=== PATIENT | male | born 1965 | race Caucasian/White ===

== ENCOUNTER 2020-01-06 21:49 | Emergency (ER) | payer OTHER, SELFPAY ==
--- NOTE | 2020-01-06 21:59 | DI.RAD.S_ITS ---
PROCEDURE: XR CHEST 1V INDICATIONS: fever, cough, sepsis TECHNIQUE: One view of the chest was acquired. COMPARISON: None. FINDINGS: Surgical changes and devices: None. Lungs and pleura: Lungs are clear. No pleural effusions or pneumothorax. Mediastinum: Mediastinal contours appear normal. Heart size is normal. Bones and chest wall: No suspicious bony lesions. Overlying soft tissues appear unremarkable. IMPRESSION: No acute cardiopulmonary disease process. Dictated by: Marifer Rome MD, PhD on 01/07/2020 at 8:20 Approved by: Marifer Rome MD, PhD on 01/07/2020 at 8:22
[2020-01-06 22:05] VITALS: BP 156/72; PULSE 106; RESP 21; TEMP 38.8; O2SAT 95; BMI 38.9
[2020-01-06] MEDS: ACETAMINOPHEN 325 MG TABLET 975 MG PO (22:05)
[2020-01-06] MEDS: LACTATED RINGERS 1,000 ML 1000 ML IV (22:05)
--- NOTE | 2020-01-06 22:22 | ED_ITS ---
HPI - Fever General Chief Complaint: Fever Stated Complaint: fever, back pain Time Seen by Provider: 01/06/20 21:52 Source: patient Mode of arrival: Family Vehicle Limitations: no limitations History of Present Illness HPI Narrative: 54-year-old male nonsmoker with noncontributory medical history presents with a chief complaint of runny nose, headache, sore throat, cough and bilateral low back pain for the past few days. He states that he generally feels unwell. He denies any dysuria, frequency or urgency. He denies any change in bowel habits. He states he has felt fatigued and under the weather. He denies that his pain is midline, the use of IV drugs or history of the same. MD complaint: fever and malaise Onset (ago): day(s) Maximum Temperature: 102 F Temperature Source: oral Associated symptoms: myalgias, headache, rhinorrhea, nasal congestion, sore throat, cough and nausea Relieving factors: nothing Exacerbating factors: nothing Treatments prior to arrival fever: ibuprofen Related Data Previous Rx's Medication Instructions Recorded doxycycline monohydrate 100 mg PO BID 10 Days #20 cap 01/07/20 Allergies Allergy/AdvReac Type Severity Reaction Status Date / Time No Known Drug Allergies Allergy Verified 01/06/20 22:08 Review of Systems Constitutional Constitutional: Reports body ache(s), Reports chills, Reports fatigue, Reports fever(s), Denies frequent falls, Reports headache(s), Denies lethargy and Denies weakness Eyes Eyes: Denies change in vision, Denies eye discharge, Denies irritation and Denies loss of vision ENT Ears, Nose, Mouth, and Throat: Denies change in voice, Denies dizziness, Reports headache(s), Denies neck pain, Reports sore throat and Denies throat swelling Cardiovascular Cardiovascular: Denies chest pain, Denies irregular heart rhythm, Denies lightheadedness, Denies palpitations, Denies dyspnea, Denies dyspnea on exertion and Denies orthopnea Respiratory Respiratory: Reports cough, Denies dyspnea, Denies dyspnea on exertion and Denies wheezing Gastrointestinal Gastrointestinal: Denies abdominal pain, Denies change in bowel habits, Denies diarrhea, Denies nausea and Denies vomiting Genitourinary Genitourinary: Denies hematuria, Denies flank pain, Denies urinary incontinence and Denies urinary urgency Musculoskeletal Musculoskeletal: Reports back pain, Denies muscle weakness, Denies neck pain, Denies numbness and Denies tingling Integumentary/Breasts Skin/Breast: Denies pruritus, Denies erythema, Denies rash and Denies wounds Neurologic Neurologic: Denies behavioral changes, Denies confusion, Denies dizziness, Denies frequent falls, Reports headache(s), Denies loss of vision, Denies numbness, Denies tingling and Denies weakness Psychiatric Psychiatric: Denies anxiety, Denies behavioral changes, Denies confusion, Denies depression, Denies homicidal ideation and Denies suicidal ideation Endocrine Endocrine: Reports fatigue, Denies flushing and Denies palpitations Hematologic/Lymphatic Hematologic/Lymphatic: Denies easy bruising Allergic/Immunologic Allergic/Immunologic: Denies urticaria, Denies throat swelling and Denies wheezing Patient History Social History Smoking Status: Never smoker Smoking Status: Never smoker alcohol intake frequency: a few times a week Substance Use Type: does not use Exam Narrative Exam Narrative: GENERAL: [54] year old patient appears stated age. Well- nourished, well-developed patient, in mild distress. HEAD: Atraumatic. Normocephalic. EYES: Pupils equal round and reactive. Extraocular motions intact. No scleral icterus. No injection or drainage. ENT: Nose without bleeding, purulent drainage. Throat without erythema, tons illar hypertrophy or exudate. Airway patent. NECK: Trachea midline. Non tender CARDIOVASCULAR: Regular rate and rhythm without murmurs, gallops, or rubs. RESPIRATORY: Clear to auscultation. Breath sounds equal bilaterally. No wheezes, rales, or rhonchi. GASTROINTESTINAL: Abdomen soft, non-tender, nondistended. EXTREMITIES: No edema or joint tenderness. BACK: Without deformity or crepitance. Bilateral lower lumbar discomfort. No midline tenderness. No saddle anesthesia, lower extremity weakness. Bilateral patellar reflexes 2+ NEURO: AOx3. SKIN: No rash or erythema of visible areas Initial Vital Signs Initial Vital Signs: Vital Signs Temperature 101.8 F H 01/06/20 22:05 Pulse Rate 106 H 01/06/20 22:05 Respiratory Rate 21 01/06/20 22:05 Blood Pressure 156/72 H 01/06/20 22:05 Pulse Oximetry 95 01/06/20 22:05 Course Orders Ordered: ED Orders 01/06/20 21:59 XR chest 1V Stat 01/06/20 22:00 Influenza A & B (PCR) Stat 01/06/20 22:05 Complete Blood Count AUTO DIFF Stat Comprehensive Metabolic Panel Stat Lactate (Lactic Acid) Stat Procalcitonin Stat 01/06/20 22:29 Blood Culture Stat 01/06/20 23:00 Respiratory Panel (Film Array) Stat Lactated Ringer's (Lactated Ringers) 1,000 mls @ 1,000 mls/hr IV BOLUS ONE Stop: 01/07/20 01:19 Last Admin: 01/07/20 00:27 Dose: 1,000 mls/hr Documented by: JANIE Discontinued Medications Acetaminophen (Tylenol) 975 mg PO NOW ONE Stop: 01/06/20 22:00 Last Admin: 01/06/20 22:05 Dose: 975 mg Documented by: KADY Doxycycline Hyclate (Vibramycin) 100 mg PO NOW ONE Stop: 01/07/20 00:49 Lactated Ringer's (Lactated Ringers) 1,000 mls @ 1,000 mls/hr IV CONT ONE Stop: 01/06/20 22:58 Last Infusion: 01/06/20 23:20 Dose: 1,000 mls/hr Documented by: Admin: 01/06/20 22:05 Dose: 1,000 mls/hr Documented by: KADY Ketorolac Tromethamine (Toradol) 15 mg IV NOW ONE Stop: 01/07/20 00:22 Last Admin: 01/07/20 00:28 Dose: 15 mg Documented by: JANIE Vital Signs Vital signs: Vital Signs - 8 hr 01/06/20 22:05 01/06/20 23:10 Temperature 101.8 F H 101 F H Pulse Rate 106 H Respiratory Rate 21 Blood Pressure 156/72 H Pulse Oximetry 95 MDM - Fever Lab Data Result diagrams: 01/06/20 22:05 01/06/20 22:05 Labs: Lab Results 01/06/20 01/06/20 01/06/20 Range/Units 22:00 22:05 22:05 WBC 10.8 (4.5-11.0) X10^3/uL RBC 4.45 L (4.5-5.9) X10^6/uL Hgb 14.2 (13.5-17.5) g/dL Hct 40.4 L (41-53) % MCV 90.9 (80-100) fL MCH 31.8 (26-34) PG MCHC 35.0 (30-36) % RDW 12.7 (11.6-14.8) % Plt Count 227 (150-400) X10^3/uL Neut % (Auto) 70.5 (50-75) % Lymph % (Auto) 17.1 L (25-40) % [place] % (Auto) 10.5 (3-14) % Eos % (Auto) 1.4 L (2-4) % Baso % (Auto) 0.5 (0-2) % Neut # (Auto) 7600 H (9042-6142) /uL Lymph # (Auto) 1900 (6691-8329) /uL [place] # (Auto) 1100 H (0-900) /uL Eos # (Auto) 100 (0-450) /uL Baso # (Auto) 100 (0-100) /uL Sodium (137-145) mmol/L Potassium (3.4-5.1) mmol/L Chloride (98-107) mmol/L Carbon Dioxide (22-32) mmol/L BUN (9-20) mg/dL Creatinine (0.66-1.25) mg/dL Estimated GFR (>60) mL/min BUN/Creatinine Ratio (6-22) Glucose (70-100) mg/dL Lactate (0.7-2.1) mmol/L Calcium (8.4-10.2) mg/dL Total Bilirubin (0.2-1.3) mg/dL AST (17-59) IU/L ALT (<50) IU/L Alkaline Phosphatase (38-126) U/L Total Protein (6.3-8.2) g/dL Albumin (3.5-5.0) g/dL Globulin (1.7-4.1) g/dL Albumin/Globulin Ratio (1.0-2.8) Procalcitonin 0.05 (<0.5) ng/mL Chlamy pneumoniae PCR (Not Detect) Adenovirus (PCR) (Not Detect) B.parapertussis DNA PCR (Not Detect) Coronavirus OC43 (PCR) (Not Detect) Coronavirus HKU1 (PCR) (Not Detect) Coronavirus 229E (PCR) (Not Detect) Coronavirus NL63 (PCR) (Not Detect) Human Metapneumovir PCR (Not Detect) Influenza A (RT-PCR) Flu a negative (NEGATIVE) Influenza Type A (PCR) (Not Detect) Influenza B (RT-PCR) Flu b negative (NEGATIVE) Influenza Type B (PCR) (Not Detect) M. pneumoniae (PCR) (Not Detect) Parainfluenza 1 (PCR) (Not Detect) Parainfluenza 2 (PCR) (Not Detect) Parainfluenza 3 (PCR) (Not Detect) Parainfluenza 4 (PCR) (Not Detect) RSV (PCR) (Not Detect) Entero/Rhino (PCR) (Not Detect) 01/06/20 01/06/20 01/06/20 Range/Units 22:05 22:05 23:00 WBC (4.5-11.0) X10^3/uL RBC (4.5-5.9) X10^6/uL Hgb (13.5-17.5) g/dL Hct (41-53) % MCV (80-100) fL MCH (26-34) PG MCHC (30-36) % RDW (11.6-14.8) % Plt Count (150-400) X10^3/uL Neut % (Auto) (50-75) % Lymph % (Auto) (25-40) % [place] % (Auto) (3-14) % Eos % (Auto) (2-4) % Baso % (Auto) (0-2) % Neut # (Auto) (9591-2940) /uL Lymph # (Auto) (4405-2549) /uL [place] # (Auto) (0-900) /uL Eos # (Auto) (0-450) /uL Baso # (Auto) (0-100) /uL Sodium 139 (137-145) mmol/L Potassium 4.1 (3.4-5.1) mmol/L Chloride 100 (98-107) mmol/L Carbon Dioxide 29 (22-32) mmol/L BUN 21 H (9-20) mg/dL Creatinine 1.10 (0.66-1.25) mg/dL Estimated GFR > 60.0 (>60) mL/min BUN/Creatinine Ratio 19.1 (6-22) Glucose 125 H (70-100) mg/dL Lactate 1.5 (0.7-2.1) mmol/L Calcium 9.8 (8.4-10.2) mg/dL Total Bilirubin 0.6 (0.2-1.3) mg/dL AST 37 (17-59) IU/L ALT 28 (<50) IU/L Alkaline Phosphatase 66 (38-126) U/L Total Protein 7.9 (6.3-8.2) g/dL Albumin 4.7 (3.5-5.0) g/dL Globulin 3.2 (1.7-4.1) g/dL Albumin/Globulin Ratio 1.5 (1.0-2.8) Procalcitonin (<0.5) ng/mL Chlamy pneumoniae PCR Not detected (Not Detect) Adenovirus (PCR) Not detected (Not Detect) B.parapertussis DNA PCR Not detected (Not Detect) Coronavirus OC43 (PCR) Not detected (Not Detect) Coronavirus HKU1 (PCR) Not detected (Not Detect) Coronavirus 229E (PCR) Not detected (Not Detect) Coronavirus NL63 (PCR) Not detected (Not Detect) Human Metapneumovir PCR Not detected (Not Detect) Influenza A (RT-PCR) (NEGATIVE) Influenza Type A (PCR) Not detected (Not Detect) Influenza B (RT-PCR) (NEGATIVE) Influenza Type B (PCR) Not detected (Not Detect) M. pneumoniae (PCR) Not detected (Not Detect) Parainfluenza 1 (PCR) Not detected (Not Detect) Parainfluenza 2 (PCR) Not detected (Not Detect) Parainfluenza 3 (PCR) Not detected (Not Detect) Parainfluenza 4 (PCR) Not detected (Not Detect) RSV (PCR) Not detected (Not Detect) Entero/Rhino (PCR) Not detected (Not Detect) Urine Dip Bedside Urine Glucose Negative Bedside Urine Bilirubin - Negative Bedside Urine Ketone +/- 5 Urine Specific [place] 1.015 Bedside Urine Occult Blood - Negative Bedside Urine pH 6.0 Bedside Urine Protein - Negative Bedside Urine Urobilinogen - Negative Bedside Urine Nitrite - Negative Bedside Urine Leukocytes - Negative Esterase MDM Narrative Medical decision making narrative: Patient feeling much better after fluids and other treatments stated above. Multiple etiologies considered for his widespread symptoms including flu and strep, both thought less likely given negative testing. UTI and pyelonephritis considered less likely given lack of typical findings urine. Spinal osteomyelitis and abscess considered but thought less likely given lack of midline tenderness over the bone or typical risk factors. Meningitis considered but thought less likely given lack of any neck pain, confusion, vomiting and presence of widespread symptoms. Atypical pneumonia or community-acquired pneumonia considered most likely cause of these symptoms. Will treat with antibiotics and encourage close follow-up. Patient understands return precautions and has had his questions answered to his apparent satisf action. Discharge Plan Departure Patient Disposition: Home Clinical Impression: Atypical pneumonia Instructions: DI for Atypical Pneumonia Activity Restrictions/Additional Instructions: *You have been diagnosed with [ atypical pneumonia ] *What to do: *Take medications as directed *Follow up with your primary care provider in 2-3 days, call for an appointment. Let them know you were seen in the Emergency Department and that we ask that you be seen in follow up *Return to ER if you should have any new, worsening or concerning symptoms, such as [shaking chills, worsening trouble breathing, development of other concerning symptoms ] Prescriptions: New doxycycline monohydrate 100 mg capsule 100 mg PO BID 10 Days Qty: 20 RF: 0
[2020-01-06 22:26] LABS: Add Manual Diff / Slide Review NO; Basophils Absolute Auto 100 /uL (0-100); Basophils Percent Auto 0.5 % (0-2); Eosinophils Absolute Auto 100 /uL (0-450); Eosinophils Percent Auto 1.4 % (2-4); Hematocrit 40.4 % (41-53); Hemoglobin 14.2 g/dL (13.5-17.5); Lymphocytes Absolute Auto 1900 /uL (1100-4500); Lymphocytes Percent Auto 17.1 % (25-40); Mean Corpuscular Hemoglobin 31.8 PG (26-34); Mean Corpuscular Volume 90.9 fL (80-100); Monocytes Absolute Auto 1100 /uL (0-900); Monocytes Percent Auto 10.5 % (3-14); Neutrophils Absolute Auto 7600 /uL (1500-7000); Neutrophils Percent Auto 70.5 % (50-75); Platelet Count 227 X10^3/uL (150-400); Red Blood Cell Count 4.45 X10^6/uL (4.5-5.9); Red Cell Distribution Width 12.7 % (11.6-14.8); White Blood Cell Count 10.8 X10^3/uL (4.5-11.0)
[2020-01-06 22:35] LABS: Lactate (Lactic Acid) 1.5 mmol/L (0.7-2.1)
[2020-01-06 22:36] LABS: Influenza A - CEPHEID Flu A NEGATIVE (NEGATIVE); Influenza B - CEPHEID Flu B NEGATIVE (NEGATIVE)
[2020-01-06 22:40] LABS: Alanine Aminotransferase 28 IU/L (<50); Albumin 4.7 g/dL (3.5-5.0); Albumin Globulin Ratio 1.5 (1.0-2.8); Alkaline Phosphatase 66 U/L (38-126); Aspartate Aminotransferase 37 IU/L (17-59); BUN Creatinine Ratio 19.1 (6-22); Bilirubin Total 0.6 mg/dL (0.2-1.3); Blood Urea Nitrogen 21 mg/dL (9-20); Calcium 9.8 mg/dL (8.4-10.2); Carbon Dioxide 29 mmol/L (22-32); Chloride 100 mmol/L (98-107); Estimated Glomerular Filt Rate > 60.0 mL/min (>60); Globulin 3.2 g/dL (1.7-4.1); Glucose 125 mg/dL (70-100); HEMOLYSIS < 15 (0-50); Potassium 4.1 mmol/L (3.4-5.1); Sodium 139 mmol/L (137-145); Total Protein 7.9 g/dL (6.3-8.2)
[2020-01-06 22:55] LABS: Procalcitonin 0.05 ng/mL (<0.5)
[2020-01-06 23:10] VITALS: TEMP 38.3
[2020-01-07 00:23] LABS: Adenovirus Not Detected (Not Detect); Bordetella pertussis Not Detected (Not Detect); Chlamydophila pneumoniae Not Detected (Not Detect); Coronavirus 229E Not Detected (Not Detect); Coronavirus HKU1 Not Detected (Not Detect); Coronavirus NL 63 Not Detected (Not Detect); Coronavirus OC43 Not Detected (Not Detect); Human Metapneumovirus Not Detected (Not Detect); Human Rhinovirus/Enterovirus Not Detected (Not Detect); Influenza A Not Detected (Not Detect); Influenza B Not Detected (Not Detect); Mycoplasma pneumoniae Not Detected (Not Detect); Parainfluenza Virus 1 Not Detected (Not Detect); Parainfluenza Virus 2 Not Detected (Not Detect); Parainfluenza Virus 3 Not Detected (Not Detect); Parainfluenza Virus 4 Not Detected (Not Detect); Respiratory Syncytial Virus Not Detected (Not Detect)
[2020-01-07] MEDS: LACTATED RINGERS 1,000 ML 1000 ML IV (00:27)
[2020-01-07] MEDS: KETOROLAC 60 MG/2 ML VIAL 15 MG IV (00:28)
[2020-01-07] MEDS: DOXYCYCLINE HYCLATE 100 MG TABLET PO (00:56)
[2020-01-07 00:58] VITALS: BP 125/65; PULSE 73; RESP 18; O2SAT 97
[2020-01-07 01:30] VITALS: TEMP 37.1
[2020-01-07 01:36] VITALS: TEMP 37.1
== END 2020-01-07 01:36 | disposition home or self-care (01) ==
PROVIDERS: Emergency Provider Emergency Medicine
DX: J18.9 Pneumonia, unspecified organism (principal)
CPT/HCPCS: 36415; 71045; 80053; 81003; 83605; 84145; 85025; 87040; 87502; 87633; 87880; 96361; 96374; 99284; J1885

== ENCOUNTER 2020-06-04 21:29 | Emergency (ER) | payer OTHER, SELFPAY ==
[2020-06-04 21:38] VITALS: BP 151/95; PULSE 85; RESP 20; TEMP 36.9; O2SAT 97; BMI 37.5
--- NOTE | 2020-06-04 22:08 | ED_ITS ---
HPI - General Adult General Chief complaint: Upper Respiratory Symptoms Stated complaint: States Sinus infection Time Seen by Provider: 06/04/20 21:31 Source: patient Mode of arrival: Ambulatory Limitations: no limitations History of Present Illness HPI narrative: 54-year-old male here for what he states is a sinus infection. He states that it is both sides of his frontal sinus with the right being greater than the left. It started a couple days ago. He states that he gets sinus infections a couple times a year. Has seen ear nose and throat. Has had surgeries for this. Has also had a UPPP and also uses a CPAP machine. He states that he cleans his CPAP on a regular basis. Last episode of this was earlier this year. He states that he is taking a daily antihistamine and has been for some time now. He is also on daily Flonase. He has also tried other [id number] decongestants without any improvement over the past couple days. He does describe a headache. No purulent drainage from his nose. No sore throat. Does get worse when he palpates the area when he bends over. Related Data Previous Rx's Medication Instructions Recorded benzonatate [Tessalon Perles] 100 mg PO TID PRN #14 cap 01/07/20 azithromycin See Rx Instructions .ROUTE 06/04/20 .COMPLEX #6 tab Allergies Allergy/AdvReac Type Severity Reaction Status Date / Time No Known Drug Allergies Allergy Verified 01/06/20 22:08 Review of Systems Constitutional Constitutional: Denies fatigue, Denies fever(s) and Reports headache(s) Eyes Eyes: Denies blurry vision ENT Ears, Nose, Mouth, and Throat: Reports headache(s), Denies nasal obstruction, Reports sinus pain, Reports sinus pressure and Denies sore throat Respiratory Respiratory: Denies cough Gastrointestinal Gastrointestinal: Denies nausea and Denies vomiting Integumentary/Breasts Skin/Breast: Denies pruritus and Denies rash Neurologic Neurologic: Denies behavioral changes and Reports headache(s) Psychiatric Psychiatric: Denies behavioral changes Endocrine Endocrine: Denies fatigue Hematologic/Lymphatic Hematologic/Lymphatic: Denies easy bleeding and Denies easy bruising Patient History Medical History Sleep apnea (Acute) Social History Smoking Status: Never smoker Smoking Status: Never smoker alcohol intake frequency: a few times a week Substance Use Type: does not use Exam Initial Vital Signs Initial Vital Signs: Vital Signs Temperature 98.5 F 06/04/20 21:38 Pulse Rate 85 06/04/20 21:38 Respiratory Rate 20 06/04/20 21:38 Blood Pressure 151/95 H 06/04/20 21:38 Pulse Oximetry 97 06/04/20 21:38 Const General: cooperative and comfortable Limitations: mental status not altered HENMT Head: normal to inspection and normocephalic Ears: TM's normal bilaterally Nose: external nose normal Face and sinus: normal facial exam Mouth: oral mucosae normal Teeth and gingiva: dentition normal Resp Effort & Inspection: normal respiratory effort Auscultation: clear to auscultation bilaterally Cardio Rate: regular rate Rhythm: regular rhythm Skin Lesions: no lesions Rashes: no rashes Neuro General: patient alert and patient awake Extrem General: normal to inspection and capillary refill normal Psych Appearance: grossly normal and well kempt Course Vital Signs Vital signs: Vital Signs - 8 hr 06/04/20 21:38 Temperature 98.5 F Pulse Rate 85 Respiratory Rate 20 Blood Pressure 151/95 H Pulse Oximetry 97 Medical Decision Making MDM Narrative Medical decision making narrative: Patient does have physical exam findings consistent with sinus disease. He states that he has been on decongestants and nasal sprays for greater than the past 2 weeks. I feel patient does meet crite berhane for treatment with antibiotics. He was given a prescription for this. He was given return precautions and follow-up instructions. He expressed understanding and agreement. Discharge Plan Departure Patient Disposition: Home Clinical Impression: Sinusitis Qualifiers: Sinusitis location: frontal Chronicity: acute Recurrence: recurrent Qualified Code(s): J01.11 - Acute recurrent frontal sinusitis Discharge Date/Time: 06/04/20 22:16 Instructions: DI for Sinusitis Activity Restrictions/Additional Instructions: Recommend you take the antibiotics as directed. Continue with the rest of your medications to include your antihistamine/decongestant. Contact your primary provider for follow-up. Prescriptions: New azithromycin 250 mg tablet See Rx Instructions .ROUTE .COMPLEX Qty: 6 RF: 0 No Action benzonatate [Tessalon Perles] 100 mg capsule 100 mg PO TID PRN (Reason: cough) Qty: 14 RF: 0
== END 2020-06-04 22:16 | disposition home or self-care (01) ==
PROVIDERS: Emergency Provider Emergency Medicine
DX: J01.11 Acute recurrent frontal sinusitis (principal)
CPT/HCPCS: 99281

== ENCOUNTER 2022-05-02 14:11 | Outpatient (CLI) | payer OTHER, SELFPAY | END 2022-05-06 09:26 | disposition home or self-care (01) | LOC: PHYS 14:12 | PROVIDERS: Family Provider Internal Medicine; PCP Internal Medicine; Referring Provider Internal Medicine; Visit Provider Internal Medicine | DX: G62.9 Polyneuropathy, unspecified (principal) | CPT/HCPCS: 95886; 95910 ==

== ENCOUNTER → 2022-05-17 10:20 | Outpatient (CLI) | payer OTHER, SELFPAY ==
[2022-05-17 11:05] LABS: Alanine Aminotransferase 43 IU/L (<50); Albumin 4.8 g/dL (3.5-5.0); Albumin Globulin Ratio 1.8 (1.0-2.8); Alkaline Phosphatase 59 U/L (38-126); Aspartate Aminotransferase 38 IU/L (17-59); BUN Creatinine Ratio 18.6 (6-22); Bilirubin Total 0.7 mg/dL (0.2-1.3); Blood Urea Nitrogen 19 mg/dL (9-20); Calcium 9.1 mg/dL (8.4-10.2); Carbon Dioxide 28 mmol/L (22-32); Chloride 103 mmol/L (98-107); Cholesterol 171 mg/dL (140-199); Estimated Glomerular Filt Rate > 60 mL/min (>60); Globulin 2.7 g/dL (1.7-4.1); Glucose 174 mg/dL (70-100); HDL Cholesterol 27 mg/dL (40-60); HEMOLYSIS < 15 (0-50); Potassium 4.4 mmol/L (3.4-5.1); Sodium 138 mmol/L (137-145); Total Protein 7.5 g/dL (6.3-8.2); Triglycerides 475 mg/dL (35-150)
[2022-05-17 11:16] LABS: LDL Cholesterol Direct 81 mg/dL (<100)
[2022-05-17 11:21] LABS: Hemoglobin A1C% w Est Avg Glu 6.1 % (4.0-6.0)
== END ==
PROVIDERS: Family Provider Internal Medicine; PCP Internal Medicine; Referring Provider Internal Medicine; Visit Provider Internal Medicine
DX: E11.9 Type 2 diabetes mellitus without complications (principal); E78.2 Mixed hyperlipidemia; G62.9 Polyneuropathy, unspecified; I10 Essential (primary) hypertension
CPT/HCPCS: 36415; 80053; 80061; 83036; 83721

== ENCOUNTER → 2023-05-16 07:43 | Outpatient (CLI) | payer OTHER, SELFPAY ==
[2023-05-16 08:24] LABS: Add Manual Diff / Slide Review NO; Basophils Absolute Auto 0 /uL (0-100); Basophils Percent Auto 0.6 % (0-2); Eosinophils Absolute Auto 200 /uL (0-450); Eosinophils Percent Auto 3.2 % (2-4); Hematocrit 39.9 % (41-53); Hemoglobin 14.3 g/dL (13.5-17.5); Lymphocytes Absolute Auto 2000 /uL (1100-4500); Lymphocytes Percent Auto 33.9 % (25-40); Mean Corpuscular Hemoglobin 31.7 PG (26-34); Mean Corpuscular Volume 88.2 fL (80-100); Monocytes Absolute Auto 500 /uL (0-900); Monocytes Percent Auto 8.6 % (3-14); Neutrophils Absolute Auto 3100 /uL (1500-7000); Neutrophils Percent Auto 53.7 % (50-75); Platelet Count 249 X10^3/uL (150-400); Red Blood Cell Count 4.52 X10^6/uL (4.5-5.9); Red Cell Distribution Width 12.8 % (11.6-14.8); White Blood Cell Count 5.9 X10^3/uL (4.5-11.0)
[2023-05-16 08:30] LABS: Alanine Aminotransferase 45 IU/L (<50); Albumin 4.5 g/dL (3.5-5.0); Albumin Globulin Ratio 1.8 (1.0-2.8); Alkaline Phosphatase 59 U/L (38-126); Aspartate Aminotransferase 38 IU/L (17-59); Bilirubin Total 0.5 mg/dL (0.2-1.3); Blood Urea Nitrogen 15 mg/dL (9-20); Carbon Dioxide 27 mmol/L (22-32); Chloride 102 mmol/L (98-107); Cholesterol 169 mg/dL (140-199); Estimated Glomerular Filt Rate > 60 mL/min (>60); Globulin 2.5 g/dL (1.7-4.1); Glucose 149 mg/dL (70-100); HDL Cholesterol 28 mg/dL (40-60); HEMOLYSIS < 15 (0-50); LDL Cholesterol Calculated 61 mg/dL (<100); Sodium 138 mmol/L (137-145); Triglycerides 400 mg/dL (35-150)
[2023-05-16 08:40] LABS: Creatinine Urine Random 265.2 mg/dL
[2023-05-16 08:44] LABS: Microalbumi Creatinin Ratio Ur 8.6 ug/mg CR (<30); Microalbumin Urine Random 2.3 mg/dL (0-1.6)
[2023-05-17 07:31] LABS: Labcorp Hemoglobin (Hb) A1c 6.5 % (4.8-5.6)
== END ==
PROVIDERS: Family Provider Internal Medicine; PCP Internal Medicine; Referring Provider Internal Medicine; Visit Provider Internal Medicine
DX: E11.42 Type 2 diabetes mellitus with diabetic polyneuropathy (principal); E78.2 Mixed hyperlipidemia; I10 Essential (primary) hypertension
CPT/HCPCS: 36415; 80053; 80061; 82043; 82570; 83036; 85025

== ENCOUNTER → 2023-11-07 09:31 | Outpatient (CLI) | payer OTHER, SELFPAY ==
[2023-11-07 10:07] LABS: HEMOLYSIS < 15 (0-50)
[2023-11-07 10:17] LABS: Alanine Aminotransferase 64 IU/L (<50); Albumin Globulin Ratio 1.9 (1.0-2.8); Alkaline Phosphatase 43 U/L (38-126); Aspartate Aminotransferase 52 IU/L (17-59); BUN Creatinine Ratio 14.4 (6-22); Bilirubin Total 0.9 mg/dL (0.2-1.3); Blood Urea Nitrogen 16 mg/dL (9-20); Calcium 9.9 mg/dL (8.4-10.2); Carbon Dioxide 28 mmol/L (22-32); Chloride 101 mmol/L (98-107); Estimated Glomerular Filt Rate > 60 mL/min (>60); Globulin 2.6 g/dL (1.7-4.1); Glucose 132 mg/dL (70-100); Potassium 4.3 mmol/L (3.4-5.1); Sodium 140 mmol/L (137-145); Total Protein 7.6 g/dL (6.3-8.2)
[2023-11-07 15:24] LABS: Hemoglobin A1C% w Est Avg Glu 6.1 % (4.0-6.0)
== END ==
PROVIDERS: Family Provider Internal Medicine; PCP Internal Medicine; Referring Provider Internal Medicine; Visit Provider Internal Medicine
DX: E11.9 Type 2 diabetes mellitus without complications (principal); E78.2 Mixed hyperlipidemia; I10 Essential (primary) hypertension; Z12.5 Encounter for screening for malignant neoplasm of prostate
CPT/HCPCS: 36415; 80053; 83036; G0103

== ENCOUNTER → 2024-06-04 08:30 | Outpatient (CLI) | payer OTHER, SELFPAY ==
[2024-06-04 09:49] LABS: HEMOLYSIS < 15 (0-50)
[2024-06-04 09:51] LABS: Hemoglobin A1C% w Est Avg Glu 6.5 % (4.0-6.0)
[2024-06-04 09:54] LABS: Alanine Aminotransferase 58 IU/L (<50); Albumin 4.6 g/dL (3.5-5.0); Albumin Globulin Ratio 1.8 (1.0-2.8); Alkaline Phosphatase 50 U/L (38-126); Aspartate Aminotransferase 57 IU/L (17-59); BUN Creatinine Ratio 15.7 (6-22); Bilirubin Total 0.8 mg/dL (0.2-1.3); Blood Urea Nitrogen 18 mg/dL (9-20); Calcium 9.5 mg/dL (8.4-10.2); Carbon Dioxide 30 mmol/L (22-32); Chloride 103 mmol/L (98-107); Cholesterol 190 mg/dL (140-199); Estimated Glomerular Filt Rate > 60 mL/min (>60); Globulin 2.6 g/dL (1.7-4.1); Glucose 137 mg/dL (70-100); HDL Cholesterol 30 mg/dL (40-60); Potassium 4.5 mmol/L (3.4-5.1); Sodium 138 mmol/L (137-145); Total Protein 7.2 g/dL (6.3-8.2); Triglycerides 475 mg/dL (35-150)
[2024-06-04 10:32] LABS: Creatinine Urine Random 156.99 mg/dL
[2024-06-04 10:46] LABS: LDL Cholesterol Direct 91 mg/dL (<100)
== END ==
PROVIDERS: Family Provider Internal Medicine; PCP Internal Medicine; Referring Provider Internal Medicine; Visit Provider Internal Medicine
DX: E11.9 Type 2 diabetes mellitus without complications (principal); E78.2 Mixed hyperlipidemia; I10 Essential (primary) hypertension
CPT/HCPCS: 36415; 80053; 80061; 82043; 82570; 83036; 83721

== ENCOUNTER 2024-07-07 07:02 | Emergency (ER) | payer OTHER, SELFPAY ==
[2024-07-07] VITALS (21 sets, daily range): BP systolic 129–176; BP diastolic 81–104; PULSE 66–83; RESP 10–23; TEMP 37; O2SAT 96–99; BMI 37.5
--- NOTE | 2024-07-07 07:17 | EKG_ITS ---
[address] [address] Test Date: 2024-07-07 Pat Name: Jesus Craig Department: Room: Gender: Male [employer] Education Coordinator: RENATA : 1965 Requested By: Order Number: [id number] Reading MD: Roddy Bryson MD Measurements Intervals [place] Rate: 68 P: 24 HI: 174 QRS: -22 QRSD: 72 T: 1 QT: 392 QTc: 416 Interpretive Statements Normal sinus rhythm Nonspecific T wave abnormality Electronically Signed On 07-07-2024 7:45:55 PDT by Roddy Bryson MD
--- NOTE | 2024-07-07 07:23 | DI.RAD.S_ITS ---
PROCEDURE: XR CHEST 1V INDICATIONS: chest pain TECHNIQUE: One view of the chest was acquired. COMPARISON: [facility], CR, XR CHEST 1V, 01/06/2020, 22:06. FINDINGS: Surgical changes and devices: None. Lungs and pleura: Submaximal inspiration with patchy bibasilar atelectasis. No pleural effusions or pneumothorax. Mediastinum: Mediastinal contours appear normal. Heart size is normal. Bones and chest wall: No suspicious bony lesions. Overlying soft tissues appear unremarkable. IMPRESSION: Submaximal inspiration with patchy bibasilar atelectasis. Dictated by: Cj Tom M.D. on 07/07/2024 at 8:33 Approved by: Cj Tom M.D. on 07/07/2024 at 8:34
[2024-07-07 07:31] LABS: Add Manual Diff / Slide Review NO; Basophils Absolute Auto 100 /uL (0-100); Basophils Percent Auto 0.8 % (0-2); Eosinophils Absolute Auto 200 /uL (0-450); Eosinophils Percent Auto 2.5 % (2-4); Hematocrit 42.2 % (41-53); Hemoglobin 15.2 g/dL (13.5-17.5); Lymphocytes Absolute Auto 2600 /uL (1100-4500); Lymphocytes Percent Auto 33.4 % (25-40); Mean Corpuscular HGB Conc 35.9 % (30-36); Mean Corpuscular Hemoglobin 32.2 PG (26-34); Mean Corpuscular Volume 89.7 fL (80-100); Monocytes Absolute Auto 700 /uL (0-900); Monocytes Percent Auto 9.1 % (3-14); Neutrophils Absolute Auto 4200 /uL (1500-7000); Neutrophils Percent Auto 54.2 % (50-75); Platelet Count 262 X10^3/uL (150-400); Red Cell Distribution Width 12.9 % (11.6-14.8); White Blood Cell Count 7.8 X10^3/uL (4.5-11.0)
--- NOTE | 2024-07-07 07:38 | PC.NURSE ---
Pt states friday night he felt fine and Friday morning he woke up with dizziness. Pt states he has not checked his bs at home. Pt reports he might be dehydrated. Pt states he thought his dizziness got better on Friday however returned/got worse today. Pt reports not taking anything over the counter for dizziness.
[2024-07-07 07:40] LABS: Alanine Aminotransferase 37 IU/L (<50); Albumin 4.9 g/dL (3.5-5.0); Albumin Globulin Ratio 1.8 (1.0-2.8); Alkaline Phosphatase 74 U/L (38-126); Aspartate Aminotransferase 32 IU/L (17-59); BUN Creatinine Ratio 17.1 (6-22); Bilirubin Total 0.6 mg/dL (0.2-1.3); Blood Urea Nitrogen 20 mg/dL (9-20); Calcium 9.6 mg/dL (8.4-10.2); Carbon Dioxide 25 mmol/L (22-32); Chloride 103 mmol/L (98-107); Creatine Kinase 99 U/L (55-170); Estimated Glomerular Filt Rate > 60 mL/min (>60); Globulin 2.8 g/dL (1.7-4.1); Glucose 143 mg/dL (70-100); HEMOLYSIS < 15 (0-50); Lipase 1610 U/L (23-300); Potassium 3.8 mmol/L (3.4-5.1); Sodium 138 mmol/L (137-145); Total Protein 7.7 g/dL (6.3-8.2)
[2024-07-07 07:45] LABS: INR 0.9 (0.9-1.3); Prothrombin Time 9.9 SECONDS (9.4-12.5)
[2024-07-07 07:48] LABS: PTT Partial Thromboplastin Tim 38 SECONDS (25.1-36.5)
[2024-07-07 07:52] LABS: NT-proBNP (BNP-Adult 18+) < 20 pg/mL (<125); Troponin I < 0.012 ng/mL (0.01-0.034)
--- NOTE | 2024-07-07 07:53 | ED_ITS ---
HPI - Dizziness General Chief Complaint: Dizziness Stated Complaint: dizzy Time Seen by Provider: 07/07/24 07:44 Source: patient Mode of arrival: Ambulatory History of Present Illness HPI Narrative: Patient here for complaints of constant dizziness for the past 4 days. He awoke this past Friday morning with lightheadedness dizziness. It is worse with getting up and changing position. However at rest sometimes he feels lightheaded. He has never had this before. He has had intermittent nausea and sweating with this. He feels like he is spinning. No prior history of vertigo. No prior history of stroke. Denies any chest pain or palpitations with this. No black or bloody stools. No changes in medications. He did call the nurse help line and recommended to increase fluids on Friday and it seemed to help but it never went away. Denies any headache. No numbness tingling or weakness. Fast exam is negative. No slurred speech or facial droop. Related Data Home Medications Medication Instructions Recorded Confirmed ascorbic acid (vitamin C) 1,000 mg 1,000 mg PO BID 03/21/22 06/25/24 tablet,extended release aspirin 81 mg tablet,delayed 81 mg PO BID 03/21/22 06/25/24 release atorvastatin 80 mg tablet 80 mg PO BEDTIME 03/21/22 06/25/24 cholecalciferol (vitamin D3) 25 25 mcg PO BID 03/21/22 06/25/24 mcg (1,000 unit) capsule fenofibrate nanocrystallized 145 145 mg PO QPM 03/21/22 06/25/24 mg tablet hydrochlorothiazide 25 mg tablet 25 mg PO DAILY 03/21/22 06/25/24 ibuprofen 200 mg tablet (Motrin IB) 800 mg PO BID 03/21/22 06/25/24 lisinopril 20 1 tab PO DAILY 03/21/22 06/25/24 mg-hydrochlorothiazide 25 mg tablet mecobalamin (vitamin B12) See Rx Instructions PO BID 03/21/22 06/25/24 metformin 500 mg tablet 500 mg PO BID 03/21/22 06/25/24 multivitamin 1 tab PO DAILY 03/21/22 06/25/24 paroxetine HCl 20 mg tablet (Paxil) 20 mg PO DAILY Ptsd 05/23/23 06/25/24 Previous Rx's Medication Instructions Recorded meclizine 25 mg tablet 25 mg PO QID PRN dizziness #30 tabs 07/07/24 Allergies Allergy/AdvReac Type Severity Reaction Status Date / Time No Known Drug Allergies Allergy Verified 06/25/24 09:09 Review of Systems Review of Systems Narrative: GENERAL: negative chills, fatigue, malaise, fever, positive sweats. HEENT: negative sinus pain, ear pain, sore throat RESPIRATORY: negative dyspnea, cough CARDIOVASCULAR: negative chest pain, palpitations GASTROINTESTINAL: Positive nausea, negative vomiting, abdominal pain : negative dysuria, frequency, hematuria MUSCULOSKELETAL: negative muscle or bony pain SKIN: negative rash, skin lesions NEUROLOGIC: negative weakness, numbness, positive dizziness Patient History Medical History Allergic rhinitis Peripheral neuropathy Type 2 diabetes mellitus Mixed hyperlipidemia Essential hypertension Hearing loss PTSD (post-traumatic stress disorder) (~2006) Shoulder pain Foot pain (~2012) Chronic back pain Carpal tunnel syndrome (~2006) Recurrent sinusitis Genital warts Pancreatitis (~2005) Sleep apnea (~2005) Surgical History Anesthesia History of carpal tunnel release History of appendectomy (~2002) History of surgery (~2004) Family History Father Cancer Mother History of heart disease Hypertension Hyperlipidemia Social History Smoking Status: Never smoker Smoking Status: Never smoker alcohol intake frequency: a few times a week Substance Use Type: does not use Exam Narrative Exam Narrative: GENERAL: in no distress, not toxic not dyspneic HEAD: Normocephalic. EYES: Pupils equal round, there is bilateral horizontal nystagmus ENT: Mucous membranes moist. NECK: Trachea midline. CARDIOVASCULAR: Regular rate and rhythm RESPIRATORY: Clear to auscultation. Breath sounds equal bilaterally. No wheezes, rales, or rhonchi. GASTROINTESTINAL: Abdomen soft, non-tender EXTREMITIES: No gross deformities. BACK: No flank tenderness. NEURO: AOx4. Clear speech no facial droop light touch intact bilateral face and hands. Fast exam is negative. Is dizzy when he stands up from lying and sitting position. Clear speech no facial droop steady self ?gait no foot drop. ?Light touch intact to bilateral face hands and legs. ?Strong equal standard machine stitcher bilaterally and ankle flexion hip flexion and knee flexion. ?Strong bilateral patellar reflexes. ?Steady Romberg, negative pronator drift SKIN: Warm and dry PSYCH: Not anxious, is cooperative Initial Vital Signs Initial Vital Signs: Vital Signs Pulse Rate 74 07/07/24 07:12 Blood Pressure 176/104 H 07/07/24 07:12 Pulse Oximetry 98 07/07/24 07:12 Course Orders Ordered: Discontinued Medications Sodium Chloride (Normal Saline 0.9%) 1,000 mls @ 1,000 mls/hr IV BOLUS ONE Stop: 07/07/24 08:51 Last Infusion: 07/07/24 10:27 Dose: Infused Documented By: Admin: 07/07/24 08:07 Dose: 1,000 mls/hr Documented By: SANDY Meclizine HCl (Meclizine Hcl 12.5 Mg Tablet) 25 mg PO NOW ONE Stop: 07/07/24 07:59 Last Admin: 07/07/24 08:08 Dose: 25 mg Documented By: SANDY Ondansetron HCl (Ondansetron 4 Mg/2 Ml Inj) 4 mg IV NOW ONE Stop: 07/07/24 07:59 Last Admin: 07/07/24 08:28 Dose: 4 mg Documented By: NAYE Vital Signs Vital signs: Vital Signs - 8 hr 07/07/24 07:12 07/07/24 07:12 07/07/24 07:19 Pulse Rate 74 78 Pulse Rate [Orthostatic Lying] Pulse Rate [Orthostatic Sitting] Pulse Rate [Orthostatic Standing] Respiratory Rate 16 Blood Pressure 176/104 H 176/104 H Blood Pressure [Orthostatic Lying] Blood Pressure [Orthostatic Sitting] Blood Pressure [Orthostatic Standing] Pulse Oximetry 98 99 Oxygen Delivery Method Room Air 07/07/24 07:19 07/07/24 07:19 07/07/24 07:30 Pulse Rate 69 66 Pulse Rate [Orthostatic Lying] Pulse Rate [Orthostatic Sitting] Pulse Rate [Orthostatic Standing] Respiratory Rate 13 15 Blood Pressure 166/96 H Blood Pressure [Orthostatic Lying] Blood Pressure [Orthostatic Sitting] Blood Pressure [Orthostatic Standing] Pulse Oximetry 99 97 Oxygen Delivery Method 07/07/24 07:30 07/07/24 07:52 07/07/24 07:52 Pulse Rate 72 Pulse Rate [Orthostatic Lying] Pulse Rate [Orthostatic Sitting] Pulse Rate [Orthostatic Standing] Respiratory Rate 17 Blood Pressure 152/88 H 169/96 H Blood Pressure [Orthostatic Lying] Blood Pressure [Orthostatic Sitting] Blood Pressure [Orthostatic Standing] Pulse Oximetry 98 Oxygen Delivery Method 07/07/24 07:54 07/07/24 07:54 07/07/24 07:55 Pulse Rate 77 78 Pulse Rate [Orthostatic Lying] Pulse Rate [Orthostatic Sitting] Pulse Rate [Orthostatic Standing] Respiratory Rate 17 19 Blood Pressure 174/98 H Blood Pressure [Orthostatic Lying] Blood Pressure [Orthostatic Sitting] Blood Pressure [Orthostatic Standing] Pulse Oximetry Oxygen Delivery Method 07/07/24 07:55 07/07/24 07:57 07/07/24 08:00 Pulse Rate 77 Pulse Rate [Orthostatic Lying] 72 Pulse Rate [Orthostatic Sitting] 78 Pulse Rate [Orthostatic Standing] 83 Respiratory Rate Blood Pressure 167/99 H Blood Pressure [Orthostatic Lying] 169/96 H Blood Pressure [Orthostatic Sitting] 174/98 H Blood Pressure [Orthostatic Standing] 167/99 H Pulse Oximetry 98 Oxygen Delivery Method 07/07/24 08:29 07/07/24 08:29 07/07/24 08:30 Pulse Rate 73 71 Pulse Rate [Orthostatic Lying] Pulse Rate [Orthostatic Sitting] Pulse Rate [Orthostatic Standing] Respiratory Rate 13 10 L Blood Pressure 164/96 H Blood Pressure [Orthostatic Lying] Blood Pressure [Orthostatic Sitting] Blood Pressure [Orthostatic Standing] Pulse Oximetry 98 99 Oxygen Delivery Method Room Air 07/07/24 09:00 07/07/24 09:00 07/07/24 09:30 Pulse Rate 67 Pulse Rate [Orthostatic Lying] Pulse Rate [Orthostatic Sitting] Pulse Rate [Orthostatic Standing] Respiratory Rate 15 Blood Pressure 136/81 136/82 Blood Pressure [Orthostatic Lying] Blood Pressure [Orthostatic Sitting] Blood Pressure [Orthostatic Standing] Pulse Oximetry 98 Oxygen Delivery Method 07/07/24 09:30 07/07/24 10:00 07/07/24 10:00 Pulse Rate 69 66 Pulse Rate [Orthostatic Lying] Pulse Rate [Orthostatic Sitting] Pulse Rate [Orthostatic Standing] Respiratory Rate 14 18 Blood Pressure 129/83 Blood Pressure [Orthostatic Lying] Blood Pressure [Orthostatic Sitting] Blood Pressure [Orthostatic Standing] Pulse Oximetry 96 97 Oxygen Delivery Method 07/07/24 10:30 07/07/24 10:30 07/07/24 10:54 Pulse Rate 68 68 Pulse Rate [Orthostatic Lying] Pulse Rate [Orthostatic Sitting] Pulse Rate [Orthostatic Standing] Respiratory Rate 15 Blood Pressure 133/87 Blood Pressure [Orthostatic Lying] Blood Pressure [Orthostatic Sitting] Blood Pressure [Orthostatic Standing] Pulse Oximetry 98 99 Oxygen Delivery Method 07/07/24 10:54 07/07/24 11:00 07/07/24 11:00 Pulse Rate 66 Pulse Rate [Orthostatic Lying] Pulse Rate [Orthostatic Sitting] Pulse Rate [Orthostatic Standing] Respiratory Rate Blood Pressure 150/87 H 142/84 H Blood Pressure [Orthostatic Lying] Blood Pressure [Orthostatic Sitting] Blood Pressure [Orthostatic Standing] Pulse Oximetry 98 Oxygen Delivery Method 07/07/24 11:30 07/07/24 11:30 Pulse Rate 70 Pulse Rate [Orthostatic Lying] Pulse Rate [Orthostatic Sitting] Pulse Rate [Orthostatic Standing] Respiratory Rate 13 Blood Pressure 133/81 Blood Pressure [Orthostatic Lying] Blood Pressure [Orthostatic Sitting] Blood Pressure [Orthostatic Standing] Pulse Oximetry 97 Oxygen Delivery Method MDM - Dizziness Lab Data 07/07/24 07:18 07/07/24 07:18 Labs: Lab Results 07/07/24 Range/Units 07:18 WBC 7.8 (4.5-11.0) X10^3/uL RBC 4.70 (4.5-5.9) X10^6/uL Hgb 15.2 (13.5-17.5) g/dL Hct 42.2 (41-53) % MCV 89.7 (80-100) fL MCH 32.2 (26-34) PG MCHC 35.9 (30-36) % RDW 12.9 (11.6-14.8) % Plt Count 262 (150-400) X10^3/uL Neut % (Auto) 54.2 (50-75) % Lymph % (Auto) 33.4 (25-40) % [place] % (Auto) 9.1 (3-14) % Eos % (Auto) 2.5 (2-4) % Baso % (Auto) 0.8 (0-2) % Neut # (Auto) 4200 (2227-1133) /uL Lymph # (Auto) 2600 (1984-3392) /uL [place] # (Auto) 700 (0-900) /uL Eos # (Auto) 200 (0-450) /uL Baso # (Auto) 100 (0-100) /uL PT 9.9 (9.4-12.5) SECONDS INR 0.9 (0.9-1.3) APTT 38 H (25.1-36.5) SECONDS Sodium 138 (137-145) mmol/L Potassium 3.8 (3.4-5.1) mmol/L Chloride 103 (98-107) mmol/L Carbon Dioxide 25 (22-32) mmol/L BUN 20 (9-20) mg/dL Creatinine 1.17 (0.66-1.25) mg/dL Estimated GFR > 60 (>60) mL/min BUN/Creatinine Ratio 17.1 (6-22) Glucose 143 H (70-100) mg/dL Calcium 9.6 (8.4-10.2) mg/dL Magnesium 2.0 (1.6-2.3) mg/dL Total Bilirubin 0.6 (0.2-1.3) mg/dL AST 32 (17-59) IU/L ALT 37 (<50) IU/L Alkaline Phosphatase 74 (38-126) U/L Total Creatine Kinase 99 (55-170) U/L Troponin I < 0.012 (0.01-0.034) ng/mL NT-Pro-B Natriuret Pep < 20 (<125) pg/mL Total Protein 7.7 (6.3-8.2) g/dL Albumin 4.9 (3.5-5.0) g/dL Globulin 2.8 (1.7-4.1) g/dL Albumin/Globulin Ratio 1.8 (1.0-2.8) Lipase 1610 H (23-300) U/L Point of Care Testing Glucose POC 132 Urine Dip Bedside Urine Glucose Negative Bedside Urine Bilirubin - Negative Bedside Urine Ketone - Negative Urine Specific [place] 1.015 Bedside Urine Occult Blood - Negative Bedside Urine pH 6.0 Bedside Urine Protein - Negative Bedside Urine Urobilinogen - Negative Bedside Urine Nitrite - Negative Bedside Urine Leukocytes - Negative Esterase Imaging Data Chest x-ray: Radiologist's Impression: [address] [address] XRay Report Signed Patient: Jesus Craig MR#: [id number] : 1965 Acct:[id number] Age/Sex: 58 / M Date of Service: 07/07/24 Loc: ED Accession Number: [id number] Procedure: XR chest 1V Ordering Provider: Prosper Bragg MD PROCEDURE: XR CHEST 1V INDICATIONS: chest pain TECHNIQUE: One view of the chest was acquired. COMPARISON: [facility], , XR CHEST 1V, 01/06/2020, 22:06. FINDINGS: Surgical changes and devices: None. Lungs and pleura: Submaximal inspiration with patchy bibasilar atelectasis. No pleural effusions or pneumothorax. Mediastinum: Mediastinal contours appear normal. Heart size is normal. Bones and chest wall: No suspicious bony lesions. Overlying soft tissues appear unremarkable. IMPRESSION: Submaximal inspiration with patchy bibasilar atelectasis. Dictated by: Cj Tom M.D. on 07/07/2024 at 8:33 Approved by: Cj Tom M.D. on 07/07/2024 at 8:34 CT scan - head: Radiologist's Impression: [address] [address] [address] Scan Report Signed Patient: Jesus Craig MR#: [id number] : 1965 Acct:[id number] Age/Sex: 58 / M Date of Service: 07/07/24 Loc: ED Accession Number: [id number] Procedure: CT head/brain wo con Ordering Provider: Prosper Bragg MD PROCEDURE: CT HEAD/BRAIN WO CON INDICATIONS: Dizzy/ataxia TECHNIQUE: Noncontrast 4.5 mm thick angled axial sections acquired from the foramen magnum to the vertex, with coronal and sagittal reformats. For radiation dose reduction, the following was used: automated exposure control, adjustment of mA and/or kV according to patient size. COMPARISON: None. FINDINGS: Image quality: Diagnostic. CSF spaces: Basal cisterns are patent. No extra-axial fluid collections. Ventricles are normal in size and shape. Brain: No midline shift. No intracranial masses or hemorrhage. Abad-white matter interface is normal. Skull and face: Calvarium and visualized facial bones are intact, without suspicious lesions. Sinuses: Visualized sinuses and mastoids are clear. IMPRESSION: No acute intracranial pathology. Dictated by: Cj Tom M.D. on 07/07/2024 at 9:37 Approved by: Cj Tom M.D. on 07/07/2024 at 9:37 CTA - brain/neck: Radiologist's Impression: [address] [address] [address] Scan Report Signed Patient: Jesus Craig MR#: [id number] : 1965 Acct:[id number] Age/Sex: 58 / M Date of Service: 07/07/24 Loc: ED Accession Number: [id number] Procedure: CT angio head and neck Ordering Provider: Prosper Bragg MD PROCEDURE: CT ANGIO HEAD AND NECK INDICATIONS: Dizzy/ataxia TECHNIQUE: After the administration of intravenous contrast, 1 mm thick sections acquired from the aortic arch through the [place] of [place]. 3-dimensional tzrbgpe-bsvpdxrmf-aholiaohzu (MIP) and/or volume rendering reformats were acquired of the central intracranial vasculature and neck separately. For radiation dose reduction, the following was used: automated exposure control, adjustment of mA and/or kV according to patient size. COMPARISON: [facility], CT, CT HEAD/BRAIN WO CON, 07/07/2024, 8:17. FINDINGS: Image quality: Diagnostic. BRAIN: CSF spaces: Ventricles are normal in size and shape. Basal cisterns are patent. No extra-axial fluid collections. Brain: No significant abnormality of the brain can be seen. Skull and face: Calvarium and facial bones appear intact, without suspicious lesions. Orbits appear normal. Sinuses: Sinuses and mastoids are clear. HEAD CT ANGIOGRAPHY: Anterior circulation: Intracranial internal carotid arteries are normal in size and flow. The flow within the paired anterior cerebral arteries is normal and symmetric. The flow within the middle cerebral arteries is normal and symmetric. The anterior communicating artery is seen. No aneurysms are seen. Posterior circulation: Visualized portions of the vertebral arteries demonstrate normal caliber, and join to form a normal appearing basilar artery. Flow within the posterior cerebral arteries is normal and symmetric. No aneurysms are seen. NECK CT ANGIOGRAPHY: Carotid system: The great vessels demonstrate a conventional anatomy as they arise from the aortic arch. The origins of the common carotid arteries appear patent. The common carotid arteries demonstrate normal caliber and courses. The bifurcation regions are both widely patent. The internal carotid arteries demonstrate normal calibers and courses. Posterior circulation: The origins of the vertebral arteries both appear widely patent. The more superior extracranial portions of both vertebral arteries also demonstrate normal courses and calibers. They join to form a normal appearing basilar artery. Soft tissues: Visualized neck soft tissues demonstrate no suspicious abnormalities. Bones: No suspicious bony lesions. Visualized cervical spine appears normally aligned. IMPRESSION: No significant intracranial arterial abnormality is seen. No significant abnormality is seen within the arteries of the neck. Any quantitative measurements of stenosis were performed using NASCET criteria. Dictated by: Cj Tom M.D. on 07/07/2024 at 9:33 Approved by: Cj Tom M.D. on 07/07/2024 at 9:37 CT scan - abdomen/pelvis: Radiologist's Impression: [place] [address] CT Scan Report Signed Patient: Jesus Craig MR#: [id number] : 1965 Acct:[id number] Age/Sex: 58 / M Date of Service: 07/07/24 Loc: ED Accession Number: [id number] Procedure: CT abdomen pelvis w con Ordering Provider: Prosper Bragg MD PROCEDURE: CT ABDOMEN PELVIS W CON INDICATIONS: Pancreatitis/abdominal pain TECHNIQUE: After the administration of intravenous contrast, axial sections acquired from the lung bases to the pubic symphysis. Coronal and sagittal reformats were performed. For radiation dose reduction, the following was used: automated exposure control, adjustment of mA and/or kV according to patient size. COMPARISON: None. FINDINGS: Image quality: Diagnostic. Lower Chest: No significant findings. ABDOMEN: Liver: No solid mass. Yyvb-qp-[id number] diffuse hepatic steatosis. Gallbladder: No radiopaque gallstones or wall thickening. Biliary ducts: No biliary dilation. Pancreas: No ductal dilation. Spleen: Size is within normal limits. Adrenal Glands: No adrenal nodules. Kidneys and Ureters: No hydronephrosis. No solid mass. No complex renal cystic lesion which requires follow up. Stomach and Bowel: Normal colonic caliber, without significant wall thickening. Peritoneum: No abnormal intraperitoneal fluid. No free air. Ventral Wall: No significant ventral hernia. Abdominal Nodes: No retroperitoneal or mesenteric adenopathy by size criteria. Vessels: Aorta and inferior vena cava are normal in size. PELVIS: Pelvic Organs: Unremarkable. Bladder: No bladder wall thickening, accounting for underdistention. Pelvic Nodes: No enlarged lymph nodes. Miscellaneous: Bilateral fat containing inguinal hernias. Bones: No aggressive osseous abnormality. Diffuse lumbar degenerative change. A large broad-based peripherally calcified posterior disc protrusion at L4-L5 results in severe canal stenosis. Reference sagittal image 52 of series 4 and axial image 69 of series 2. IMPRESSION: 1. No acute abdominal process. 2. Note made of a large chronic disc protrusion at L4-L5 resulting in severe canal stenosis. 3. Bilateral fat containing inguinal hernias. 4. Hhcl-xu-[id number] diffuse hepatic steatosis. Dictated by: Cj Tom M.D. on 07/07/2024 at 9:24 Approved by: Cj Tom M.D. on 07/07/2024 at 9:28 MRI brain: Radiologist's Impression: [address] [address] Magnetic Resonance Report Signed Patient: Jesus Craig MR#: [id number] : 1965 Acct:[id number] Age/Sex: 58 / M Date of Service: 07/07/24 Loc: ED Accession Number: [id number] Procedure: MR head/brain wo con Ordering Provider: Prosper Bragg MD PROCEDURE: MR HEAD/BRAIN WO CON INDICATIONS: Ataxia/rule out stroke TECHNIQUE: Noncontrast axial T1 spin echo, axial T2 fast spin echo, sagittal and axial FLAIR, coronal T2 fast spin echo, axial gradient echo, axial diffusion and ADC through the brain. COMPARISON: [facility], CT, CT HEAD/BRAIN WO CON, 07/07/2024, 8:17. FINDINGS: Image quality: Excellent. CSF Spaces: Basal cisterns are patent. No extra-axial fluid collections. Ventricles are normal in size and shape. Brain: No intracranial masses or hemorrhage. Abad/white matter interface is normal. Brainstem appears normal. Diffusion-weighted images demonstrate no acute infarct. No chronic ischemic insults. Normal intravascular flow voids are present. Skull and face: Calvarium has normal marrow signal. Orbits appear normal. Sinuses: Sinuses and mastoids are clear. IMPRESSION: Unremarkable brain MRI. No acute intracranial process. Dictated by: Cj Tom M.D. on 07/07/2024 at 12:04 Approved by: Cj Tom M.D. on 07/07/2024 at 12:06 [facility] Narrative Medical decision making narrative: Patient here for complaints of constant dizziness for the past 4 days. He awoke this past Friday morning with lightheadedness dizziness. It is worse with getting up and changing position. However at rest sometimes he feels lightheaded. He has never had this before. He has had intermittent nausea and sweating with this. He feels like he is spinning. No prior history of vertigo. No prior history of stroke. Denies any chest pain or palpitations with this. No black or bloody stools. No changes in medications. He did call the nurse help line and recommended to increase fluids on Friday and it seemed to help but it never went away. Denies any headache. No numbness tingling or weakness. Fast exam is negative. No slurred speech or facial droop. After history and exam CBC CMP troponin EKG chest x-ray CT head CT angiogram head and neck normal saline orthostatics meclizine Zofran [facility] Medical records reviewed: Differential considered: Includes but not limited to Lab Test results independently reviewed as above. Pertinent findings: WBC 7.8 hemoglobin 15.2 INR 0.9 sodium 138 potassium 3.8 BUN 20 creatinine 1.7 GFR greater than 60 glucose 143 troponin less than 0.012 BNP less than 20, lipase 1610/however patient denies any abdominal pain at this time. Urinalysis negative nitrite negative leukocyte Independently reviewed EKG normal sinus rhythm rate 68 Imaging studies independently reviewed: Chest x-ray possible atelectasis, CT head CT angiogram head and neck no acute finding, CT abdomen pelvis no acute finding MRI brain no acute finding Consultations: None indicated at this time Treatments: Meclizine normal saline Re-evaluations: 12:57 p.m.. Patient is feeling better. Meclizine seemed to help him. At this time laboratory studies are reassuring. Return precautions reviewed with him. Work note provided. He does have primary care with Dr. Bryson. Prescription for meclizine will provided. He is agreeable with this plan and continued workup outpatient it is appropriate for his dizziness. Discussion: Appropriate for discharge home exam and laboratory studies and imaging studies are reassuring. Patient has improvement with meclizine. Could be vertigo versus labyrinthitis. Lipase nonspecific patient has no no no abdominal pain. Return precautions reviewed. Nontoxic at discharge. He desires discharge home Diagnosis: Dizziness Discharge Plan Departure Patient Disposition: Home Clinical Impression: Dizziness Instructions: DI for Vertigo, DI for Dizziness-Nonvertigo Activity Restrictions/Additional Instructions: Your laboratory studies imaging studies are reassuring at this time. You could be developing vertigo or problem with the inner ear causing dizziness. Prescription medication has been sent to your pharmacy to continue. Please see your family doctor within a week for re-evaluation. Work note has been provided for you. Return if worse if any questions or concerns. Prescriptions: New meclizine 25 mg tablet 25 mg PO QID PRN (Reason: dizziness) Qty: 30 0RF No Action hydrochlorothiazide 25 mg tablet 25 mg PO DAILY lisinopril-hydrochlorothiazide 20-25 mg tablet 1 tab PO DAILY atorvastatin 80 mg tablet 80 mg PO BEDTIME metformin 500 mg tablet 500 mg PO BID fenofibrate nanocrystallized 145 mg tablet 145 mg PO QPM cholecalciferol (vitamin D3) 25 mcg (1,000 unit) capsule 25 mcg PO BID aspirin 81 mg tablet,delayed release (DR/EC) 81 mg PO BID ibuprofen [Motrin IB] 200 mg tablet 800 mg PO BID mecobalamin (vitamin B12) See Rx Instructions PO BID Rx Instructions: 1 tab PO twice a day; multivitamin Tablet 1 tab PO DAILY ascorbic acid (vitamin C) 1,000 mg tablet extended release 1,000 mg PO BID paroxetine HCl [Paxil] 20 mg tablet 20 mg PO DAILY Referrals: Roddy Bryson MD [Primary Care Provider] - Stand Alone Forms: Patient Portal/API, Work Release Note
--- NOTE | 2024-07-07 07:57 | DI.CT.S_ITS ---
PROCEDURE: CT ABDOMEN PELVIS W CON INDICATIONS: Pancreatitis/abdominal pain TECHNIQUE: After the administration of intravenous contrast, axial sections acquired from the lung bases to the pubic symphysis. Coronal and sagittal reformats were performed. For radiation dose reduction, the following was used: automated exposure control, adjustment of mA and/or kV according to patient size. COMPARISON: None. FINDINGS: Image quality: Diagnostic. Lower Chest: No significant findings. ABDOMEN: Liver: No solid mass. [id number] diffuse hepatic steatosis. Gallbladder: No radiopaque gallstones or wall thickening. Biliary ducts: No biliary dilation. Pancreas: No ductal dilation. Spleen: Size is within normal limits. Adrenal Glands: No adrenal nodules. Kidneys and Ureters: No hydronephrosis. No solid mass. No complex renal cystic lesion which requires follow up. Stomach and Bowel: Normal colonic caliber, without significant wall thickening. Peritoneum: No abnormal intraperitoneal fluid. No free air. Ventral Wall: No significant ventral hernia. Abdominal Nodes: No retroperitoneal or mesenteric adenopathy by size criteria. Vessels: Aorta and inferior vena cava are normal in size. PELVIS: Pelvic Organs: Unremarkable. Bladder: No bladder wall thickening, accounting for underdistention. Pelvic Nodes: No enlarged lymph nodes. Miscellaneous: Bilateral fat containing inguinal hernias. Bones: No aggressive osseous abnormality. Diffuse lumbar degenerative change. A large broad-based peripherally calcified posterior disc protrusion at L4-L5 results in severe canal stenosis. Reference sagittal image 52 of series 4 and axial image 69 of series 2. IMPRESSION: 1. No acute abdominal process. 2. Note made of a large chronic disc protrusion at L4-L5 resulting in severe canal stenosis. 3. Bilateral fat containing inguinal hernias. 4. [id number] diffuse hepatic steatosis. Dictated by: Cj Tom M.D. on 07/07/2024 at 9:24 Approved by: Cj Tom M.D. on 07/07/2024 at 9:28
[2024-07-07] MEDS: SODIUM CHLORIDE 0.9% 1,000 ML 1000 ML IV (08:07)
[2024-07-07] MEDS: MECLIZINE HCL 12.5 MG TABLET 25 MG PO (08:08)
[2024-07-07] MEDS: ONDANSETRON 4 MG/2 ML INJ IV (08:28)
--- NOTE | 2024-07-07 09:12 | DI.MRI.S_ITS ---
PROCEDURE: MR HEAD/BRAIN WO CON INDICATIONS: Ataxia/rule out stroke TECHNIQUE: Noncontrast axial T1 spin echo, axial T2 fast spin echo, sagittal and axial FLAIR, coronal T2 fast spin echo, axial gradient echo, axial diffusion and ADC through the brain. COMPARISON: [facility], CT, CT HEAD/BRAIN WO CON, 07/07/2024, 8:17. FINDINGS: Image quality: Excellent. CSF Spaces: Basal cisterns are patent. No extra-axial fluid collections. Ventricles are normal in size and shape. Brain: No intracranial masses or hemorrhage. Abad/white matter interface is normal. Brainstem appears normal. Diffusion-weighted images demonstrate no acute infarct. No chronic ischemic insults. Normal intravascular flow voids are present. Skull and face: Calvarium has normal marrow signal. Orbits appear normal. Sinuses: Sinuses and mastoids are clear. IMPRESSION: Unremarkable brain MRI. No acute intracranial process. Dictated by: Cj Tom M.D. on 07/07/2024 at 12:04 Approved by: Cj Tom M.D. on 07/07/2024 at 12:06
--- NOTE | 2024-07-07 13:14 | PC.NURSE ---
Stable gait; pt states he is still dizzy (MD aware). GCS 15
== END 2024-07-07 13:15 | disposition home or self-care (01) ==
PROVIDERS: Emergency Provider Emergency Medicine; Family Provider Internal Medicine; PCP Internal Medicine
DX: R42 Dizziness and giddiness (principal); R07.9 Chest pain, unspecified
CPT/HCPCS: 36415; 70450; 70496; 70498; 70551; 71045; 74177; 80053; 81003; 82550; 82962; 83690; 83735; 83880; 84484; 85025; 85610; 85730; 93005; 96361; 96374; 99284; J2405; Q9967

== ENCOUNTER 2024-09-22 06:59 | Emergency (ER) | payer OTHER, SELFPAY ==
[2024-09-22 07:26] VITALS: BP 170/97; PULSE 64; RESP 12; TEMP 36.6; O2SAT 96; BMI 38.5
--- NOTE | 2024-09-22 09:07 | ED_ITS ---
HPI - Back Pain/Injury General Chief Complaint: Back Pain/Injury Stated Complaint: back pain Time Seen by Provider: 09/22/24 09:03 Source: patient, RN notes reviewed and old records reviewed Mode of arrival: Ambulatory Limitations: no limitations History of Present Illness HPI Narrative: 59-year-old male history of hypertension, dyslipidemia diabetes type 2, chronic back pain who presents with complaint of acute on chronic back pain after injuring it while at work. Patient states he was using a drill sort of jerked his shoulder down and tweaked his back. He states he was improving somewhat but Friday this weekend irritated again while lifting and moving some heavy things. Patient states lower back bilaterally, does not radiate down his legs. Has a little bit of tingling in both feet but states that is chronic for him not new or different. Denies any saddle anesthesia. Denies weakness. No difficulty with gait or movement. No loss of bowel or bladder control. Patient states this is similar to prior episodes he has been taking ibuprofen and Excedrin without significant improvement. Patient states he works doing a lot of lifting heavy things in moving things awkwardly. Patient denies any fevers or chills, no prior back surgeries or interventions. Takes medication for hypertension, PTSD, dyslipidemia diabetes type 2. Denies any other major surgeries. No known drug allergies. No tobacco, occasional alcohol, no recreational or IV drugs. Related Data Home Medications Medication Instructions Recorded Confirmed ascorbic acid (vitamin C) 1,000 mg 1,000 mg PO BID 03/21/22 07/23/24 tablet,extended release aspirin 81 mg tablet,delayed 81 mg PO BID 03/21/22 07/23/24 release atorvastatin 80 mg tablet 80 mg PO BEDTIME 03/21/22 07/23/24 cholecalciferol (vitamin D3) 25 25 mcg PO BID 03/21/22 07/23/24 mcg (1,000 unit) capsule fenofibrate nanocrystallized 145 145 mg PO QPM 03/21/22 07/23/24 mg tablet hydrochlorothiazide 25 mg tablet 25 mg PO DAILY 03/21/22 07/23/24 ibuprofen 200 mg tablet (Motrin IB) 800 mg PO BID 03/21/22 07/23/24 lisinopril 20 1 tab PO DAILY 03/21/22 07/23/24 mg-hydrochlorothiazide 25 mg tablet mecobalamin (vitamin B12) See Rx Instructions PO BID 03/21/22 07/23/24 metformin 500 mg tablet 500 mg PO BID 03/21/22 07/23/24 multivitamin 1 tab PO DAILY 03/21/22 07/23/24 paroxetine HCl 20 mg tablet (Paxil) 20 mg PO DAILY Ptsd 05/23/23 07/23/24 Previous Rx's Medication Instructions Recorded meclizine 25 mg tablet 25 mg PO QID PRN dizziness #30 tabs 07/07/24 cyclobenzaprine 10 mg tablet 10 mg PO TID PRN muscle spasm #10 09/22/24 tabs hydrocodone 5 mg-acetaminophen 325 1 tab PO Q6H PRN pain #10 tabs 09/22/24 mg tablet Allergies Allergy/AdvReac Type Severity Reaction Status Date / Time No Known Drug Allergies Allergy Verified 09/22/24 07:30 Review of Systems Review of Systems ROS Unobtainable: All systems reviewed & are unremarkable except as noted in HPI and below Patient History Medical History Bilateral shoulder pain Allergic rhinitis Peripheral neuropathy Type 2 diabetes mellitus Mixed hyperlipidemia Essential hypertension Hearing loss PTSD (post-traumatic stress disorder) (~2006) Shoulder pain Foot pain (~2012) Chronic back pain Carpal tunnel syndrome (~2006) Recurrent sinusitis Genital warts Pancreatitis (~2005) Sleep apnea (~2005) Surgical History Anesthesia History of carpal tunnel release History of appendectomy (~2002) History of surgery (~2004) Family History Father Cancer Mother History of heart disease Hypertension Hyperlipidemia Social History Smoking Status: Never smoker Smoking Status: Never smoker alcohol intake frequency: a few times a week Substance Use Type: does not use Exam Narrative Exam Narrative: GENERAL: Alert and oriented x three, male in mild distress. HEENT: Head normocephalic, atraumatic, EOMI, pupils reactive, face symmetric, moist mucous membranes NECK: Supple, full range of motion CARDIOVASCULAR: Regular rate and rhythm without murmurs, rubs or gallops. RESPIRATORY: Breath sounds equal bilaterally, no wheezes rales or rhonchi. ABDOMEN: Soft, nontender. Normoactive bowel sounds all 4 quadrants. No guarding or rebound, rigidity, no mass : No CVA tenderness BACK: No cervical, thoracic or lumbar vertebral point tenderness. Patient's seated upright on the edge of the bed in his most comfortable position. Patient has mildly decreased range of motion. Patient's gait is normal. Rectal exam is deferred. Muscle strength is 5/5 in lower extremities. Cap refill less than 2 seconds bilateral lower extremities. Sensation is intact in the lower extremities. No rash or skin changes over the back. EXTREMITIES: Normal range of motion, no clubbing or edema. Neurovascularly intact NEUROLOGICAL: Cranial nerves II through XII grossly intact. Moving all extremities SKIN: Warm, dry, no petechiae, no rashes or lesions. Initial Vital Signs Initial Vital Signs: Vital Signs Temperature 97.8 F 09/22/24 07:26 Pulse Rate 64 09/22/24 07:26 Respiratory Rate 12 09/22/24 07:26 Blood Pressure 170/97 H 09/22/24 07:26 Pulse Oximetry 96 09/22/24 07:26 Oxygen Delivery Method Room Air 09/22/24 07:26 Course Orders Ordered: Discontinued Medications Ketorolac Tromethamine (Ketorolac 30 Mg/Ml Vial) 15 mg IV NOW ONE Stop: 09/22/24 09:21 Last Admin: 09/22/24 09:39 Dose: 15 mg Documented By: JENNY Vital Signs Vital signs: Vital Signs - 8 hr 09/22/24 07:26 Temperature 97.8 F Pulse Rate 64 Respiratory Rate 12 Blood Pressure 170/97 H Pulse Oximetry 96 Oxygen Delivery Method Room Air MDM - Back Pain/Injury MDM Narrative Medical decision making narrative: 59-year-old male with acute on chronic low back pain with no other red flag changes. Patient has tried home medications including [id number] medicine. Discussed with patient we will give a shot of Toradol, we will give a prescription for muscle relaxer and short course of pain medication. Discussed return precautions and red flag symptoms. Discharge Plan Departure Patient Disposition: Home Clinical Impression: Acute exacerbation of chronic low back pain Instructions: DI for Low Back Pain Activity Restrictions/Additional Instructions: Follow up with your physician if you are not having any improvement in the next week. You can take ibuprofen up to 600 mg every 6 hours and/or acetaminophen up to 1000 mg every 6 hours as needed for pain. You can take muscle relaxer 1 tablet every 8 hours as needed. If inadequate for pain you can take 1 tablet of oral narcotic pain medication every 6 hours as needed as well, this medication does have Tylenol at so do not take Tylenol at the same time as this medication. This medication can make you sleepy do not drive, perform hazardous activities or make any major decisions while taking it. This medication will make you constipated please take a stool softener once to twice daily until stools are soft and regular. Prescription sent to [facility]. Please return for fevers, rapidly worsening pain, new numbness, weakness or inability to lift or move your legs, loss of bowel or bladder control, loss of sensation in the groin or other new or concerning changes. Prescriptions: New cyclobenzaprine 10 mg tablet 10 mg PO TID PRN (Reason: muscle spasm) Qty: 10 0RF hydrocodone-acetaminophen 5-325 mg tablet 1 tab PO Q6H PRN (Reason: pain) Qty: 10 0RF No Action hydrochlorothiazide 25 mg tablet 25 mg PO DAILY lisinopril-hydrochlorothiazide 20-25 mg tablet 1 tab PO DAILY atorvastatin 80 mg tablet 80 mg PO BEDTIME metformin 500 mg tablet 500 mg PO BID fenofibrate nanocrystallized 145 mg tablet 145 mg PO QPM cholecalciferol (vitamin D3) 25 mcg (1,000 unit) capsule 25 mcg PO BID aspirin 81 mg tablet,delayed release (DR/EC) 81 mg PO BID ibuprofen [Motrin IB] 200 mg tablet 800 mg PO BID mecobalamin (vitamin B12) See Rx Instructions PO BID Rx Instructions: 1 tab PO twice a day; multivitamin Tablet 1 tab PO DAILY ascorbic acid (vitamin C) 1,000 mg tablet extended release 1,000 mg PO BID paroxetine HCl [Paxil] 20 mg tablet 20 mg PO DAILY meclizine 25 mg tablet 25 mg PO QID PRN (Reason: dizziness) Qty: 30 0RF Referrals: Roddy Bryson MD [Primary Care Provider] - Stand Alone Forms: Patient Portal/API/Survey, Work Release Note
[2024-09-22] MEDS: KETOROLAC 30 MG/ML VIAL 15 MG IV (09:39)
== END 2024-09-22 09:47 | disposition home or self-care (01) ==
PROVIDERS: Emergency Provider Emergency Medicine; Family Provider Internal Medicine; PCP Internal Medicine
DX: M54.50 Low back pain, unspecified (principal); X58.XXXA Exposure to other specified factors, initial encounter
CPT/HCPCS: 96374; 99283; 99284; J1885

== ENCOUNTER → 2024-12-25 09:44 | Outpatient (CLI) | payer OTHER, SELFPAY ==
[2024-12-25 11:01] LABS: Hemoglobin A1C% w Est Avg Glu 6.5 % (4.0-6.0)
[2024-12-25 11:06] LABS: Alanine Aminotransferase 54 IU/L (<50); Albumin 4.5 g/dL (3.5-5.0); Albumin Globulin Ratio 1.9 (1.0-2.8); Alkaline Phosphatase 64 U/L (38-126); Aspartate Aminotransferase 43 IU/L (17-59); BUN Creatinine Ratio 11.2 (6-22); Bilirubin Total 0.6 mg/dL (0.2-1.3); Blood Urea Nitrogen 12 mg/dL (9-20); Calcium 9.4 mg/dL (8.4-10.2); Carbon Dioxide 26 mmol/L (22-32); Chloride 103 mmol/L (98-107); Cholesterol 188 mg/dL (140-199); Estimated Glomerular Filt Rate > 60 mL/min (>60); Globulin 2.4 g/dL (1.7-4.1); Glucose 174 mg/dL (70-100); HDL Cholesterol 27 mg/dL (40-60); HEMOLYSIS < 15 (0-50); Potassium 4.3 mmol/L (3.4-5.1); Sodium 137 mmol/L (137-145); Total Protein 6.9 g/dL (6.3-8.2); Triglycerides 416 mg/dL (35-150)
[2024-12-25 11:17] LABS: LDL Cholesterol Direct 97 mg/dL (<100)
[2024-12-25 11:39] LABS: Prostate Specific Antigen Scrn 0.765 ng/mL (0.1-4.0)
== END ==
PROVIDERS: Family Provider Internal Medicine; PCP Internal Medicine; Referring Provider Internal Medicine; Visit Provider Internal Medicine
DX: E11.9 Type 2 diabetes mellitus without complications (principal); E78.2 Mixed hyperlipidemia; I10 Essential (primary) hypertension; Z12.5 Encounter for screening for malignant neoplasm of prostate
CPT/HCPCS: 36415; 80053; 80061; 83036; 83721; G0103